=== PATIENT | female | born 1985 | race Caucasian/White ===

== ENCOUNTER 2023-11-28 14:06 | Outpatient (CLI) | payer OTHER, SELFPAY | END 2023-11-28 14:07 | disposition home or self-care (01) | PROVIDERS: Visit Provider Obstetrics & Gynecology | DX: N97.9 Female infertility, unspecified (principal) | CPT/HCPCS: 80061; 83498; 83520; 84270; 84402; 84403; 84443 ==

== ENCOUNTER 2023-12-05 08:38 | Outpatient (CLI) | payer OTHER, SELFPAY | END 2023-12-05 08:39 | disposition home or self-care (01) | PROVIDERS: Visit Provider Obstetrics & Gynecology | DX: N97.9 Female infertility, unspecified (principal) | CPT/HCPCS: 82670; 83001 ==

== ENCOUNTER 2023-12-11 07:59 | Outpatient (CLI) | payer OTHER, SELFPAY ==
--- NOTE | 2023-12-11 08:15 | FL_ITS ---
Patient: THERESE HAMMOND Facility:?[facility] Patient ID:?[id number] Site Patient ID:?[id number]. Site :?[id number] Study:?XRay-Abdomen HSG W/FLUORO-12/11/2023 9:13:16 AM Ordering Physician:?TIM MARTINEZ Final Report: Indication: Infertility Technique: Routine hysterosalpingogram performed. Fluoroscopic time 45 seconds. IMPRESSION: Normal patency of the right fallopian tube. The left fallopian tube is not opacified suggesting occlusion. No endometrial canal filling defect. Dictated by Joseph Pike MD @ 12/11/2023 10:55:32 AM Signed by:?Joseph Pike MD @12/11/2023 10:55:32 AM (Electronic Signature)
--- NOTE | 2023-12-11 08:54 | PM.PROC ---
Procedure Note Time Seen by Provider: 08:55 Date Seen: 12/11/23 Date of procedure: 12/31/23 Will [facility] bill your pro fee for this procedure?: Yes Procedure: DATE: 12/11/2023 PREPROCEDURE DIAGNOSIS: Infertility POSTPROCEDURE DIAGNOSIS: 1. Infertility NAME OF PROCEDURE: Hysterosalpingogram. ANESTHESIA: None. COMPLICATIONS: None. PROCEDURE: After obtaining verbal consent, the patient was placed in the dorsal lithotomy position on the x-ray table. An open-sided bivalve speculum was introduced into the vagina and the cervix easily visualized. The cervix and vagina were then prepped with Betadine. Os binder/cervical dilator used: No. A balloon tipped double-lumen catheter was then gently inserted through the cervical opening into the uterine cavity to the level of the fundus. The balloon was insufflated with 3 mL of air. Thespeculum was removed. The patient was repositioned in the supine position, covered, and the radiologist was called to the room. A hysterosalpingogram was then performed. A total of 8 cc of Optiray 300 water soluble contrast dye was injected through the double-lumen catheter under moderate pressure. There was immediate fill of the uterine cavity to the cornua and immediate fill of both fallopian tubes with free spill from the right side but no free spill from the left side. The endometrial contour appeared normal. The balloon was deflated. The catheter was removed. The patient tolerated the procedure well, though she did have moderate cramping discomfort during and just after the procedure. She was discharged to home in stable condition and make an appointment with her physician to review all of her lab results and procedure results.
== END 2023-12-11 08:00 | disposition home or self-care (01) ==
PROVIDERS: Visit Provider Obstetrics & Gynecology
DX: N97.9 Female infertility, unspecified (principal)
CPT/HCPCS: 58340; 74740; A4649; Q9967

== ENCOUNTER 2023-12-23 07:45 | Outpatient (CLI) | payer OTHER, SELFPAY | END 2023-12-23 07:46 | disposition home or self-care (01) | LOC: NFLDREF 12-28 08:53 | PROVIDERS: Visit Provider Obstetrics & Gynecology | DX: N97.0 Female infertility associated with anovulation (principal) | CPT/HCPCS: 84144 ==

== ENCOUNTER 2024-12-02 08:03 | Outpatient (CLI) | payer OTHER, SELFPAY ==
--- NOTE | 2024-12-02 08:15 | CRLHL7_ITS ---
For Patients: As a result of the Century Cures Act, medical imaging exams and procedure reports are released immediately into your electronic medical record. You may view this report before your referring provider. If you have questions, please contact your health care provider. OB ULTRASOUND FIRST TRIMESTER INDICATION: Dating and viability. History of infertility. TECHNIQUE: Real time grayscale imaging of the fetus was performed. Transvaginal. LMP: 10/07/2024. MOSES by LMP: 07/14/2025. GA: 8 w, 0 d. Previous US: No. CRL: 1.9 cm. 8 w 3 d. MOSES: 07/11/2025. FHR: 178 BPM. Gestational sac: 2.6 cm. Appears within normal limits. Yolk sac: 2.7 mm. Appears within normal limits. Right ovary: Within normal limits. 3.4 x 2.4 x 2.7 cm. CL. Left ovary: Within normal limits. 3.2 x 1.2 x 1.5 cm. IMPRESSION: 1. Single living intrauterine with sonographic gestational age 8 weeks 3 days and sonographic due date 07/11/2025. 2. Intramural fibroid is present in the uterine fundus measuring 3.6 x 2.6 x 2.8 cm. Additional fibroid is posterior/exophytic and measures 2.0 x 1.4 x 2.1 cm. Incidental cervical Nabothian cysts noted. 3. Heterogeneous decidual reaction about the gestational sac without definitive subchorionic hemorrhage. Joseph Pike M.D. Diagnostic Radiologist [email or web address] KATHI/preeti álvarez/Dictated by: Joseph Pike MD @ 12/02/2024 1:09:00 PM (Electronically Signed)
== END 2024-12-02 08:04 | disposition home or self-care (01) ==
LOC: US 08:06
PROVIDERS: Visit Provider Physician Assistant
DX: Z34.91 Encounter for supervision of normal pregnancy, unspecified, first trimester (principal); O34.11 Maternal care for benign tumor of corpus uteri, first trimester; D25.1 Intramural leiomyoma of uterus; Z3A.08 8 weeks gestation of pregnancy
CPT/HCPCS: 76817; 86592; 86703; 86704; 86706; 86762; 86787; 86803; 86850; 86900; 86901; 87086; 87340; 87491; 87591

== ENCOUNTER 2024-12-02 09:35 | Outpatient (CLI) | payer OTHER, SELFPAY ==
[2024-12-02 16:22] LABS: Chlamydia DNA Amplified* NOT DETECTED (No Detected); GC DNA Amplified* NOT DETECTED (No Detected)
== END 2024-12-02 09:36 | disposition home or self-care (01) ==
PROVIDERS: Visit Provider Physician Assistant
DX: Z34.91 Encounter for supervision of normal pregnancy, unspecified, first trimester (principal); Z3A.08 8 weeks gestation of pregnancy
CPT/HCPCS: 83020; 83021; 85660; 86592; 86703; 86704; 86706; 86762; 86787; 86803; 86850; 86900; 86901; 87086; 87340; 87491; 87591

== ENCOUNTER 2024-12-30 09:11 | Outpatient (CLI) | payer OTHER, SELFPAY | END 2024-12-30 09:12 | disposition home or self-care (01) | LOC: NFLDREF 09:11 | PROVIDERS: Visit Provider Obstetrics & Gynecology | DX: O09.521 Supervision of elderly multigravida, first trimester (principal); Z3A.12 12 weeks gestation of pregnancy | CPT/HCPCS: 83020; 83021; 85660 ==

== ENCOUNTER 2025-02-16 09:11 | Outpatient (CLI) | payer OTHER, SELFPAY | END 2025-02-16 09:12 | disposition home or self-care (01) | PROVIDERS: Visit Provider Obstetrics & Gynecology | DX: O09.522 Supervision of elderly multigravida, second trimester (principal); Z3A.18 18 weeks gestation of pregnancy | CPT/HCPCS: 76811 ==

== ENCOUNTER 2025-04-21 13:43 | Outpatient (CLI) | payer OTHER, SELFPAY | END 2025-04-21 13:44 | disposition home or self-care (01) | LOC: NFLDREF 04-23 18:53 | PROVIDERS: Visit Provider Obstetrics & Gynecology | DX: Z34.01 Encounter for supervision of normal first pregnancy, first trimester (principal) | CPT/HCPCS: 86592 ==

== ENCOUNTER 2025-04-28 08:18 | Outpatient (CLI) | payer OTHER, SELFPAY | END 2025-04-28 08:19 | disposition home or self-care (01) | LOC: NFLDREF 04-29 15:09 | PROVIDERS: Visit Provider Obstetrics & Gynecology | DX: O99.810 Abnormal glucose complicating pregnancy (principal); Z3A.28 28 weeks gestation of pregnancy | CPT/HCPCS: 82951; 82952 ==

== ENCOUNTER 2025-06-15 09:29 | Outpatient (CLI) | payer OTHER, SELFPAY ==
[2025-06-16 09:39] LABS: Strep B DNA Probe Negative (Negative)
[2025-06-16 09:42] LABS: Strep B Susceptibility Needed? No
== END 2025-06-15 09:30 | disposition home or self-care (01) ==
LOC: NFLDREF 09:30
PROVIDERS: Visit Provider Obstetrics & Gynecology
DX: Z34.93 Encounter for supervision of normal pregnancy, unspecified, third trimester (principal)
CPT/HCPCS: 87081; 87653

== ENCOUNTER 2025-06-28 15:18 | Outpatient (CLI) | payer OTHER, SELFPAY | END 2025-06-28 15:19 | disposition home or self-care (01) | PROVIDERS: Visit Provider Obstetrics & Gynecology | DX: O16.3 Unspecified maternal hypertension, third trimester (principal) | CPT/HCPCS: 82565; 82570; 84156; 84450; 84460; 84520 ==

== ENCOUNTER 2025-06-30 11:59 | Inpatient (IN) | payer OTHER, SELFPAY ==
[2025-06-30] VITALS (43 sets, daily range): BP systolic 108–151; BP diastolic 65–88; PULSE 68–114; RESP 16–21; TEMP 36.5–36.8; O2SAT 94–100; BMI 36.6
[2025-06-30 12:36] LABS: Hematocrit* 40.0 % (33.0-51.0); Hemoglobin* 13.5 gm/dL (12.0-16.0); Mean Corpuscular HGB Conc 34 gm/dL (32-36); Mean Corpuscular Hemoglobin 30 pg (26-34); Mean Corpuscular Volume 89 fL (80-100); Red Blood Count* 4.49 m/uL (4.00-5.20); White Blood Count* 10.24 K/uL (4.50-11.00)
[2025-06-30 12:51] LABS: Alanine Aminotransferase* 25 U/L (4-35); Aspartate Amino Transferase* 27 U/L (12-35); Blood Urea Nitrogen* 7 mg/dL (5-24); Creatinine* 0.6 mg/dL (0.5-1.5); Estimated Glomerular Filt Rate 118 ml/min
[2025-06-30 12:56] LABS: Slide Review Reflex No
[2025-06-30] MEDS: LACTATED RINGERS 1000 ML 1,000 ML 123 ML IV (13:56)
[2025-06-30] MEDS: OXYTOCIN 30 unit/500 ML in NS 30 UNIT/500 ML BAG IVPB (14:19)
--- NOTE | 2025-06-30 21:52 | W.PM.LDBA ---
Subjective History of Present Illness Date Seen: 06/30/25 Narrative: Patient is being admitted to Labor and Delivery for induction of labor for indication of preeclampsia without severe features. She is a 39 year old at 38 0/7 weeks gestation. She had a high-normal BP on 06/28, and had HELLP labs notable for protein:creatinine of 0.37; labs were otherwise normal. She returned to clinic today for repeat BP check which was newly elevated in the mild range; she subsequently had more mild elevations in the Center. Her full history and physical was dictated by Dr. Trevino on 06/22. Please see this for details. Specific Issues/Plans Partner: Dylon Baby: [place]! H&P: Uriel on 06/22 # AMA Aspirin 81 mg Genetic screening: Low risk, gender not reported Level 2 ultrasound and MFM consult: Normal # unexplained infertility with diminished ovarian reserve, spontaneous ! # genital herpes, infrequent outbreaks Valtrex at 36 weeks:started # depression Stable on Lexapro 10mg # obesity, BMI 33.8 Hemoglobin A1c: 5.5% # uterine fibroids, 3.6 cm and 2.1 cm On Level 2 scan, 4.7 cm and in right lateral uterus. # Failed 1 hr gtt at 151 3 hr gtt: 90/133/125/105 (normal) Imagin02/16/2025: Level 2. Cephalic, posterior placenta without previa, SDP 3.8 cm, three-vessel cord, EFW 72%, AC 65%, fibroid on right lateral uterus measuring 4.7 cm in greatest dimension. Vaccinations: COVID: Declined Flu: Declined Tdap: 05/04/25 RSV: 06/01/25 32 week mental health: PHQ-9: 5. DORA-7: 1 Last pap: 12/06/21, NIL/-HPV OB - Problem Based A/P Additional Plan (1) Preeclampsia: Status: Acute Delivery/Labor/Induction Plan Induction method: per pitocin protocol OB Exam Physical Exam Vital signs: Temp Pulse Resp BP Pulse Ox 98.2 F 75 16 129/81 98 06/30/25 19:32 06/30/25 20:50 06/30/25 20:33 06/30/25 20:50 06/30/25 18:57 Narrative: Physical exam: General: No acute distress Psych: Alert and oriented x3, full affect HEENT: Normocephalic, atraumatic Neck: No cervical adenopathy, no thyromegaly Heart: Regular rate and rhythm, no murmur rub or gallop Lungs: Clear to auscultation bilaterally Abdomen: Soft, nontender, gravid Lower extremities: 2+ edema bilaterally Pelvic exam: Cervix 4 / 70 / -2
[2025-06-30] MEDS: LACTATED RINGERS 1000 ML 1,000 ML 109 ML IV ×2 (21:56→23:44)
--- NOTE | 2025-06-30 21:58 | P.OBPN_ITS ---
Subjective Date Seen: 06/30/25 Narrative: Elda has had pitocin for augmentation of labor throughout the day. She is currently at a dose of 20 mU / min but is feeling only mild contractions. Objective Exam: Gen - NAD, sitting in bed Cervix - 5 / 80 / -1 / anterior / soft. AROM For abundant clear fluid Vital Signs: Last Vital Signs Temp 98.2 F 06/30/25 19:32 Pulse 75 06/30/25 20:50 Resp 16 06/30/25 20:33 BP 129/81 06/30/25 20:50 Pulse Ox 98 06/30/25 18:57 Comments: tracing: Baseline 135 / accelerations present / no decels / moderate variability. Contractions Q 2 min Assessment Amniotic Membrane Status: AROM Status: Category l Heart Rate Baseline: 135 Skilled Nursing Variability: Moderate (6-25) Monitor Accelerations: Present Monitor Decelerations: None Labor Progress: Early induction with favorable cervix. Now s/p AROM Maternal Status: Intermittent, mild elevations of BP Plan Plan: Continue pitocin augmentation at current doses. Continuous monitoring. Epidural as desired.
[2025-06-30] MEDS: BUPIVACAINE 0.25% PF 10 ML 10 ML ML EPIDURAL (22:53)
[2025-06-30] MEDS: ROPIVACAINE 0.2% 100 ml 100 ML 12 MG EPIDURAL (22:54)
--- NOTE | 2025-06-30 23:05 | PM.ANBPRC ---
[facility] Medical History GERD (gastroesophageal reflux disease) ?K21.9 - Gastro-esophageal reflux disease without esophagitis (ICD-10) Genital herpes ?A60.00 - Herpesviral infection of urogenital system, unspecified (ICD-10) Anxiety ?F41.9 - Anxiety disorder, unspecified (ICD-10) Depression ?F32.A - Depression, unspecified (ICD-10) Surgical History H/O wisdom tooth extraction ?K08.409 - Partial loss of teeth, unspecified cause, unspecified class (ICD-10) Family History Other Breast cancer Diabetes High blood pressure Ovarian cancer Social History Narrative: SOCIAL HISTORY: 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 Marital status: . Mandaen/cultural needs: no. Chemical or radiation exposure: no. Pre- tobacco use: no. Pre- alcohol use: 1-2 per week. Current tobacco use: no. Current alcohol use: no. Recreational drug use: no. Dietary restrictions: no. Blood transfusion acceptable in an emergency: yes. PSYCHOSOCIAL HISTORY: History of depression or currently depressed: yes. Current or past physical, emotional, or sexual mistreatment: no. Problems that will make it hard to make it to appointments: no. What is your current living situation?: I presently have a place to live Problems where you live: no known problems In the past 12 months, utilities in danger of being shut off: no In past 12 months, lack of transportation kept you from medical appts, meetings, work, or getting things needed for daily living: no In the past 12 mos, have been you worried that your food would run out before you had money to buy more?: never true In the past 12 mos, the food you bought just didn't last and you didn't have money to buy more?: never true Smoking Status: Never smoker How often does anyone, including family, friends and others, physically hurt you: never How often does anyone, including family, friends and others, insult or talk down to you: never How often does anyone, including family, friends and others, threaten you with harm: never How often does anyone, including family, friends and others, scream or curse at you: never Meds Home Medications and Allergies Home Medications ?Medication ?Instructions ?Recorded ?Confirmed ?Type escitalopram oxalate 10 mg tablet 10 mg PO DAILY 11/28/23 06/30/25 History DBC-[id number]-[id number]-omega 3 fatty no.1 27 300 cap PO DAILY 12/02/24 06/30/25 History mg-1 mg-300 mg capsule ascorbic acid (vitamin C) 500 mg 500 mg PO QDAY 12/02/24 06/30/25 History capsule cholecalciferol (vitamin D3) 50 50 mcg PO QDAY 12/02/24 06/30/25 History mcg (2,000 unit) capsule aspirin 81 mg chewable tablet 81 mg PO QDAY 12/30/24 06/30/25 History doxylamine succinate 25 mg tablet 25 mg PO QHS PRN 12/30/24 06/30/25 History (Unisom (doxylamine)) Held on 06/30/25. Instructions: PRN omeprazole 20 mg capsule,delayed 20 mg PO QDAY #90 caps 01/27/25 06/30/25 Rx release calcium acetate 667 mg tablet 667 mg PO ONCE 02/22/25 06/30/25 History valacyclovir 1 gram tablet 1,000 mg PO QDAY #40 tabs 06/01/25 06/30/25 Rx (Valtrex) Allergies Allergy/AdvReac Type Severity Reaction Status Date / Time No Known Drug Allergies Allergy Verified 06/30/25 12:49 Results Labs Labs: Laboratory Results - last 24 hr 06/30/25 12:30 WBC 10.24 RBC 4.49 Hgb 13.5 Hct 40.0 MCV 89 MCH 30 MCHC 34 Plt Count 270 BUN 7 Creatinine 0.6 Estimated GFR 118 AST 27 ALT 25 Vital Signs Vital Signs: Last Vital Signs Temp 98.2 F 06/30/25 19:32 Pulse 84 06/30/25 23:01 Resp 16 06/30/25 20:33 BP 135/71 06/30/25 23:03 Pulse Ox 100 06/30/25 23:04 Weight: 103.102 kg Height: 167.64 cm Anesthesia Procedures Epidural Insertion Patient Location: OB Start Time: 22: Stop Time: 23:06 Start Date: 06/30/25 Stop Date: 06/30/25 Reason for Block: procedure for pain Patient Position: sitting Performed By: Nahid Morrison Preanesthetic Checklist: IV checked, risks and benefits discussed, monitors and equipment checked, pre-op evaluation, timeout performed and anesthesia consent Prep: chlorhexidine gluconate Monitoring: blood pressure monitoring, continuous pulse oximetry and heart rate Approach: midline Vertebral Space: lumbar (1-5) Epidural Technique: BIANCA saline Needle Type: Tuohy needle Injection Technique: continuous catheter Needle gauge: 17 Needle Length (cm): 10 cm Needle Insertion Depth (cm): 6 Catheter Gauge: 19 Catheter Type: multi-orifice Catheter at skin depth (cm): 12 Test Dose Result: negative and lidocaine 1.5% with epinephrine 1 to 200,000
[2025-07-01] VITALS (69 sets, daily range): BP systolic 106–145; BP diastolic 55–84; PULSE 72–109; RESP 16–18; TEMP 36.6–36.9; O2SAT 88–99
[2025-07-01] MEDS: ONDANSETRON 2 MG/ML inj 4 MG IV (04:15)
--- NOTE | 2025-07-01 04:53 | W.PM.VAGDEL1 ---
Procedure Delivery date: 07/01/25 Procedure Done: [employer] Procedure Details: The patient is a 39 year-old G 1 P 0 woman admitted on 06/30/2025 at 38 Weeks, 0 Days gestation for induction of labor for indication of preeclampsia though without severe features.? Cervical exam on admission was 4 cm/70 % effaced/-2 station with membranes intact in vertex presentation.? heart rate demonstrated a category 1 tracing.? ? She had Pitocin for induction of labor. AROM occurred at 9:31 p.m. with clear fluid. Labor Analgesia:? Epidural] ? Labor onset:? 9:45 p.m. ? Complete:? 3:36 a.m. on 07/01/2025 ? Pushing:? 3:47 a.m. ? heart tones during second stage were reassuring, with brief variable decelerations noted with contractions. ? At 4:26 a.m. a viable female infant delivered in vertex OA presentation over small second-degree perineal laceration via spontaneous vaginal delivery.? Infant was placed on maternal abdomen.? Cord was clamped and cut after a 30-60 second delay.? Nose and mouth were bulb suctioned.? Infant weight 6 lb, 5 ounces.? 6 at 1 minute and 8 at 5 minutes.? Shoulder dystocia: No.? Nuchal cord: X1, delivered through this. ? Placenta delivered spontaneously and complete at 4:43 a.m. with a 3 vessel cord. ? Mother and were stable after delivery. ? Lacerations:? Small second-degree perineal laceration, repaired with 2-0 Vicryl. ? Blood loss: 700 mL. Blood loss measurement type: QBL ? Sponge and needles counts are correct. Events: Pre-Eclampsia Intrapartal Events: Labor Induction Delivery augmentation: rupture of membranes Delivery monitor: external FHT Route of delivery: Episiotomy description: None Laceration description: Perineal - 2nd Degree Delivery repair: Vicryl Estimated blood loss (mL): 700 Anesthesia type: Epidural Disposition: floor Complications: none
[2025-07-01] MEDS: DOCUSATE SODIUM 100 MG CAPSULE PO (10:36)
[2025-07-01] MEDS: FERROUS SULFATE 325 MG TABLET PO (10:36)
[2025-07-01] MEDS: ESCITALOPRAM 10 MG TABLET PO (10:37)
[2025-07-01] MEDS: VALACYCLOVIR HCL 500 MG TABLET PO ×2 (10:37→21:00)
--- NOTE | 2025-07-01 13:22 | PM.ANPOST ---
Post Anesthesia Note Post Anesthesia Note Patient seen: Inpatient Respiratory Status: adequate Cardiovascular Status: adequate Mental Status: baseline Pain: adequate Temp: baseline Anesthetic awareness: N/A Complications: none Follow care: none
[2025-07-01] MEDS: ACETAMINOPHEN 500 MG TABLET 1000 MG PO (21:03)
[2025-07-02 04:05] VITALS: BP 111/77; PULSE 101; RESP 18; TEMP 36.6; O2SAT 97
[2025-07-02 05:52] LABS: Hematocrit* 28.5 % (33.0-51.0); Hemoglobin* 9.5 gm/dL (12.0-16.0); Immature Granulocytes Abs Auto 0.04 K/uL (0.00-0.30); Immature Granulocytes Pct Auto 0.4 %; Mean Corpuscular HGB Conc 33 gm/dL (32-36); Mean Corpuscular Hemoglobin 30 pg (26-34); Mean Corpuscular Volume 91 fL (80-100); RDW Coefficient of Variation % 15.0 % (11.5-15.5); Red Blood Count* 3.14 m/uL (4.00-5.20); White Blood Count* 10.26 K/uL (4.50-11.00)
[2025-07-02 05:57] LABS: Lymphocytes Absolute Auto 1.90 K/uL (0.90-2.90); Slide Review Reflex No
[2025-07-02 06:09] LABS: Alanine Aminotransferase* 22 U/L (4-35); Aspartate Amino Transferase* 32 U/L (12-35); Blood Urea Nitrogen* 7 mg/dL (5-24); Creatinine* 0.6 mg/dL (0.5-1.5); Est. Creatinine Clearance* 119.01; Estimated Glomerular Filt Rate 118 ml/min
[2025-07-02 08:15] VITALS: BP 110/77; PULSE 98; RESP 16; TEMP 36.4; O2SAT 97
[2025-07-02] MEDS: ESCITALOPRAM 10 MG TABLET PO (09:28)
[2025-07-02] MEDS: DOCUSATE SODIUM 100 MG CAPSULE PO (09:32)
--- NOTE | 2025-07-02 09:53 | PM.OBPNVD1 ---
OB - PN:Subj Subjective Time Seen by Provider: 08:30 Date Seen: 07/02/25 Narrative: Elda is a 39yo seen on PPD1 from following IOL for preE without SF. was otherwise complicated by AMA, genital herpes, depression, obesity, uterine fibroids. Patient notes she is feeling well this morning. She has no significant abdominal, pelvic or perineal pain. She tolerates p.o. intake without nausea or vomiting. Void spontaneously, has not yet passed flatus/BM. She notes her lochia was heavier yesterday, but has now become minimal overnight. Ambulates without dizziness, lightheadedness, chest pain or dyspnea. She denies headaches, vision changes or right upper quadrant pain. She has been normotensive since her delivery. Repeat preeclampsia labs were found to be normal this morning - hemoglobin of 9.5 (from 13.5), platelets 211, creatinine 0.6, AST 32, ALT 22. Urine output is robust, 1200cc/8 hours. Elda is baby Valery. She notes that this has been somewhat challenging due to latch difficulty. Is working with bedside nurse is on support. OB - PN: Obj Exam Physical Exam: Vital signs: Temp Pulse Resp BP Pulse Ox O2 Del Method 97.8 F 101 H 18 111/77 97 Room Air 07/02/25 04:05 07/02/25 04:05 07/02/25 04:05 07/02/25 04:05 07/02/25 04:05 07/02/25 04:05 Narrative: General: Alert and oriented, no acute distress Psych: Appropriate mood and affect Abdomen: Soft, nondistended. Minimal tenderness to palpation of the uterine fundus, found to be firm at umbilicus. No rebound or guarding. Extremities: 1+ edema bilaterally. No calf erythema, tenderness or swelling. OB - PN: Obj Data Labs Labs: Laboratory Results - last 24 hr 06/30/25 07/02/25 12:30 05:32 WBC 10.26 RBC 3.14 L Hgb 9.5 L Hct 28.5 L MCV 91 MCH 30 MCHC 33 RDW Coeff of Joe 15.0 Plt Count 211 Neut % (Auto) 75.2 H Lymph % (Auto) 18.4 L [place] % (Auto) 5.2 Eos % (Auto) 0.7 Baso % (Auto) 0.1 Neut # (Auto) 7.70 H Lymph # (Auto) 1.90 [place] # (Auto) 0.50 Eos # (Auto) 0.07 Baso # (Auto) 0.01 Abs Immat Gran (auto) 0.04 Imm/Tot Granulo (auto) 0.4 BUN 7 Creatinine 0.6 Estimated Creat Clear 119.01 Estimated GFR 118 AST 32 ALT 22 RPR Screen Non Reactive OB - PN: A/P Delivery Assessment and Plan (1) Preeclampsia: Status: Acute (2) History of herpes genitalis: Status: Acute (3) Depression: Status: Acute (4) AMA (advanced maternal age) multigravida 35+: Status: Acute Plan Elda is a 39-year-old seen on day 1 from [facility] following IOL for preeclampsia without severe features. Patient has done well in the period. She denies headaches, vision changes or right upper quadrant pain. Has been entirely normotensive since delivery. Robust urine output and voiding spontaneously. Repeat preE labs were within normal limits. She is not on any antihypertensive medications, none indicated at this time. Plan to continue to monitor her vital signs, urine output. Will repeat pre E labs as clinically indicated. Patient was noted to have some acute blood loss anemia this morning, hemoglobin of 9.5. Has normal vital signs and is entirely asymptomatic. She is ambulating without dizziness/lightheadedness, pain is well controlled. Lochia was more significant yesterday, but now she notes it is minimal. Plan to continue to monitor her vital signs and clinical status closely. Plan expectant management at this time, but would have a low threshold to repeat her hemoglobin with a change in her vital signs or clinical status. Continue routine cares and support. Patient is already scheduled for an outpatient visit middle of next week. Dispo: Anticipate discharge home tomorrow
[2025-07-02 12:10] VITALS: BP 130/80; PULSE 94; RESP 16; O2SAT 99
[2025-07-02] MEDS: ACETAMINOPHEN 500 MG TABLET 1000 MG PO (14:59)
[2025-07-02 15:52] VITALS: BP 127/82; PULSE 88; RESP 16; TEMP 37.3; O2SAT 99
[2025-07-02 20:37] VITALS: BP 120/77; PULSE 76; RESP 20; TEMP 36.7; O2SAT 95
[2025-07-03 00:45] VITALS: BP 122/85; PULSE 85; RESP 20; TEMP 36.8; O2SAT 95
[2025-07-03 04:46] VITALS: BP 117/78; PULSE 89; RESP 20; O2SAT 95
[2025-07-03 07:45] VITALS: BP 121/78; PULSE 84; RESP 16; TEMP 36.8; O2SAT 96
[2025-07-03] MEDS: ACETAMINOPHEN 500 MG TABLET 1000 MG PO (07:57)
[2025-07-03] MEDS: FERROUS SULFATE 325 MG TABLET PO (07:57)
[2025-07-03] MEDS: ESCITALOPRAM 10 MG TABLET PO (07:57)
[2025-07-03] MEDS: DOCUSATE SODIUM 100 MG CAPSULE PO (07:57)
--- NOTE | 2025-07-03 10:00 | P.DS_ITS ---
DS: Providers Provider Time Seen by Provider: 10:00 Date Seen: 07/03/25 Date of admission: 06/30/25 11:59 Primary care physician: Not a Local Provider Admitting Clinician: Madelyn Reyna MD Attending Physician on discharge: Madelyn Reyna MD Exam Narrative: Exam Narrative: General: Alert and oriented, no acute distress Psych: Appropriate mood and affect Abdomen: Soft, nondistended. Minimal tenderness to palpation of the uterine fundus, found to be firm and 1 below umbilicus. No rebound or guarding. Const: Vital Signs, click to edit/add: Vital Signs - 24 hr 07/02/25 12:10 07/02/25 15:52 07/02/25 20:37 Temperature 99.1 F 98.1 F Pulse Rate [Blood Pressure Cuff] 94 88 76 Respiratory Rate 16 16 20 Blood Pressure [Le ft Arm] 130/80 127/82 120/77 Pulse Oximetry 99 99 95 Oxygen Delivery Me thod Room Air Room Air Room Air 07/03/25 00:45 07/03/25 04:46 07/03/25 07:45 Temperature 98.3 F 98.3 F Pulse Rate [Blood Pressure Cuff] 85 89 84 Respiratory Rate 20 20 16 Blood Pressure [Le ft Arm] 122/85 117/78 121/78 Pulse Oximetry 95 95 96 Oxygen Delivery Me thod Room Air Room Air Room Air OB - DS: Summary Hospital Course Hospital Course: The patient is a 39 year old G 1 P 1 at 38 weeks gestation that was admitted to the Center on 06/30/25 for induction of labor in the setting of preeclampsia without severe features. She had an uncomplicated vaginal delivery. She delivered a viable female infant. She is breast feeding. the patient has done well. Patient notes she is feeling well. Pain is well controlled, just has mild soreness of her bottom. She is eating and drinking without nausea or vomiting. Voiding spontaneously, passing flatus. Lochia is described as small volume. Ambulate successfully, no dizziness/lightheadedness, chest pain or dyspnea. is ongoing, working through latch difficulties. Bonding appropriately. Patient has been normotensive since her delivery. Denies headaches, vision changes or right upper quadrant pain. Gender: Female Time Spent with Patient Time attestation: Total time spent providing and/or coordinating discharge services: Discharge Plan Discharge Disposition: Home, Self-Care Date of Admission: 06/30/25 11:59 Consulting Providers: Jojo Tirado; Maggie Trevino Primary Care Provider: Provider,Not a Local Condition: Stable Anticipated Discharge Date/Time: 07/03/25 10:02 Discharge Medications: Continued escitalopram oxalate 10 mg tablet 10 mg PO DAILY [id number] 3 fatty no.1 27-1-300 mg capsule 300 cap PO DAILY ascorbic acid (vitamin C) 500 mg capsule 500 mg PO QDAY cholecalciferol (vitamin D3) 50 mcg (2,000 unit) capsule 50 mcg PO QDAY Unisom (doxylamine) 25 mg tablet 25 mg PO QHS PRN calcium acetate 667 mg tablet 667 mg PO ONCE omeprazole 20 mg capsule,delayed release(DR/EC) 20 mg PO QDAY Qty: 90 2RF Discontinued aspirin 81 mg tablet,chewable 81 mg PO QDAY valacyclovir [Valtrex] 1 gram tablet 1,000 mg PO QDAY Qty: 40 0RF Discharge Orders: Discharge Order (Routine); Ordered 07/03/25 Ordered By: Maggie Trevino Additional Instructions: Discharge instructions were reviewed with the patient including signs and symptoms of infection and home going medications Nothing vaginally for 6 weeks: no tampons or intercourse Do not drive while taking narcotic pain medication(s) Off Work or School for 8 weeks Symptoms to report to doctor: * Bleeding that saturates more than one pad per hour * Passing clots larger than the size of a golf ball * Pain not relieved by prescribed medication * Fever above 100.4 degrees Fahrenheit * A foul vaginal odor * Difficulty in emotions, mood, and functions * Thoughts of hurting yourself and/or * Painful, reddened area in your breast * Any drainage, redness, or tenderness in your IV/epidural site * Severe headache that doesn't improve after taking medications * Changes in vision, including temporary loss of vision, blurred vision, and/or light sensitivity * Upper abdominal pain (usually under ribs on the right side) * Decrease in urination or painful, frequent urinating * Chest pain * Shortness of breath * Tenderness or pain with redness and/swelling in the calf(s) of your leg [facility] for a BP check with RN on 07/07 or 10/10 - please call clinic to schedule. Call with BP greater than or equal to 160/110 Optional 2-week visit: discuss infant feeding concerns, review control options and screen for anxiety/depression. 6-week visit for an annual exam. consultation services are available to all mothers and babies for the first year after delivery.? To make an appointment, please call [phone]. Discharge Diet: Regular Follow Up Appointments: Provider,Not a Local [Primary Care Provider, Family Practice] Forms: Patient Belongings, MyHealth Info Instructions
== END 2025-07-03 11:17 | disposition home or self-care (01) | DRG 806 ==
PROVIDERS: Admitting Provider Obstetrics & Gynecology; Visit Provider Obstetrics & Gynecology
DX: O14.04 Mild to moderate pre-eclampsia, complicating childbirth (principal); O98.32 Other infections with a predominantly sexual mode of transmission complicating childbirth; Z37.0 Single live birth; O70.1 Second degree perineal laceration during delivery; A60.00 Herpesviral infection of urogenital system, unspecified; O99.344 Other mental disorders complicating childbirth; F32.A Depression, unspecified; O99.214 Obesity complicating childbirth; E66.9 Obesity, unspecified; O34.13 Maternal care for benign tumor of corpus uteri, third trimester; D25.9 Leiomyoma of uterus, unspecified; Z3A.38 38 weeks gestation of pregnancy
CPT/HCPCS: 01967; 36415; 82565; 84450; 84460; 84520; 85025; 85027; 86592; A9270; J0665; J2405; J2795; J7120

== ENCOUNTER 2025-07-06 12:45 | Outpatient (CLI) | payer OTHER, SELFPAY ==
--- NOTE | 2025-07-06 16:01 | W.PM.LAC.MC ---
Consult Note - Mom Date of Visit Date of visit: 07/06/25 Reason for consultation: Assistance Needed and Other (was using nipple shield, now baby not latch even with shield and mom pumping/bottling) Visit Code: Visit Patient's Information Phone number: [phone] Para: 1 Allergies No Known Drug Allergies Allergy (Verified 06/30/25 12:49) Mother's medical history: Anxiety, Depression and Post hemorrhage Mother's Medical History: Medical History (Updated 07/06/25 @ 00:01 by Background Danathanael) GERD (gastroesophageal reflux disease) ?K21.9 - Gastro-esophageal reflux disease without esophagitis (ICD-10) Genital herpes ?A60.00 - Herpesviral infection of urogenital system, unspecified (ICD-10) Anxiety ?F41.9 - Anxiety disorder, unspecified (ICD-10) Depression ?F32.A - Depression, unspecified (ICD-10) Work Plans: return to work in September Delivery Information Delivery type: Vaginal Gestational Age: 38+1 Gestational Weight For Age: AGA Weight: 2.86 kg Discharge Weight: 2.694 kg Baby's Information Baby's Age at Visit: 4 days Baby's Provider or Clinic: [facility] Jaundice: Yes Past Experience Past Experience: No Current Frequency of Day Feedings: every 3 hours day and night Both Breasts: Yes (not nursing) Suck: ok Goals: 1 year Pumping Pumping: Yes Quantity Pumped: 1 oz every 3 hours Supplementing EBM Supplement: Yes (taking 1 oz every 3 hours from Samantha Makenna bottle) Formula Supplement: Yes Baby Elimination Number of Wet Diapers a Day: 4-5/day Number of BM a Day: almost every feeding Breast/Nipple Condition Breast Information: Breasts are symmetrical with rounded lower quadrants, intramammary distance is less than 1.5 inches. No erythema. Nipples are supple, everted prior to feeding. Breast Shape: Round Engorgement: No Maternal Nipple Condition - Left: Short Maternal Nipple Condition - Right: Short Sore Nipples: No Baby Assessment Skin: Yellow (to abdomen; bili level 18.9 today, down from 18.4) Tongue/frenulum: Normal/elastic Palate: Average Lips: Relaxed Jaw Alignment: Symmetrical and Receding Mucosa: [place], moist Onsite Observation Pre-Feed weight: 2.77 kg (up 77 gm from clinic visit yesterday) Post-Feed weight: 2.78 kg Milk Transferred (mL): 10 Position: Cross cradle Attachment/latch-on achieved: With difficulty and With nipple shield Suck pattern: Suck burst and normal rest Swallow: Occasionally Behavior following feed: Alert, fussy (took 1 oz from bottle and was then satisfied) Pre-Nursing Left Nipple: Within Normal Limits Pre-Nursing Right Nipple: Within Normal Limits Post-Nursing Left Nipple: Within Normal Limits Post-Nursing Right Nipple: Within Normal Limits Assessments/Interventions Assessments/Interventions: Worked with mom/taught asymmetrical latch technique for a wide, deep latch Able to get baby on to the breast with the nipple shield and she sustained nursing for 10 minutes on mom's right breast. Transferred 10ml and needed coaxing with SNS to continue with feeding. Discussed with mom how the elevated bilirubin level is likely playing into her fatigue Discussed normals of ; milk coming in, regulation of supply. Discussed using the pump after each feeding for a few days to keep supply coming in while baby is learning to nurse with the challenge of the elevated bilirubin. Discussed flange size for her Spectra pump given nipple size of 19mm; flange inserts an option Education provided: Early feeding cues to maximize timing of latching, Asymmetric latch technique for wide/deep latch to increase milk, Transfer for baby and increase comfort for mom, Supply/demand nature of milk supply, Alternative feeding methods (SNS, cup, finger feeding, bottling) (discussed other bottle options given it's taking baby 15 min to take 1 oz with current bottle), Use of nipple shield and Milk collection, storage Feeding Plan: Breastfeed for 10-15 on each breast, listening for active swallowing Pump both breasts for: 10 minutes after each feeding if baby feeds for 10 min or so ea side; a full 20 minutes if pumping instead of Feed baby 30-45 ml of pumped milk and/or formula every 2-3 hours based on feeding cues; ok to offer 1/2 oz at a time as she starts nursing more efficiently Use a syringe/feeding tube, cup, or bottle for feedings based on preference Rest, and repeat every 2-3 hours, watch for early feeding cues Try skin to skin to increase milk production team leader expression 2-3 times/day may result in more milk than pumping alone. Follow-Up Suggested follow up: Appointment as needed Time Spent Time spent with patient (min): 90 Meds Home Medications and Allergies Home Medications ?Medication ?Instructions ?Recorded ?Confirmed ?Type escitalopram oxalate 10 mg tablet 10 mg PO DAILY 11/28/23 06/30/25 History [id number] 3 fatty no.1 27 300 cap PO DAILY 12/02/24 06/30/25 History mg-1 mg-300 mg capsule ascorbic acid (vitamin C) 500 mg 500 mg PO QDAY 12/02/24 06/30/25 History capsule cholecalciferol (vitamin D3) 50 50 mcg PO QDAY 12/02/24 06/30/25 History mcg (2,000 unit) capsule doxylamine succinate 25 mg tablet 25 mg PO QHS PRN 12/30/24 06/30/25 History (Unisom (doxylamine)) omeprazole 20 mg capsule,delayed 20 mg PO QDAY #90 caps 01/27/25 06/30/25 Rx release calcium acetate 667 mg tablet 667 mg PO ONCE 02/22/25 06/30/25 History Allergies Allergy/AdvReac Type Severity Reaction Status Date / Time No Known Drug Allergies Allergy Verified 06/30/25 12:49
== END 2025-07-06 12:46 | disposition home or self-care (01) ==
LOC: OB LAC 12:45
PROVIDERS: Visit Provider Obstetrics & Gynecology
DX: Z39.1 Encounter for care and examination of lactating mother (principal)
CPT/HCPCS: G0463